=== PATIENT | male | born 1985 | race Caucasian/White ===

== ENCOUNTER 2017-08-21 22:40 | Emergency (ER) | payer OTHER ==
[~2017-08-21] VITALS: Ht 177.8 cm; Wt 90.0 kg
[2017-08-21 23:08] LABS: AUTOMATED NEUTROPHIL # 4.5 TH/MM3 (1.8-7.7); BASOPHIL % 0.6 % (0.0-2.0); EOSINOPHIL # 0.1 TH/MM3 (0-0.4); EOSINOPHIL % 1.5 % (0.0-4.0); HEMATOCRIT 42.9 % (39.0-51.0); HEMOGLOBIN 14.9 GM/DL (13.0-17.0); LYMPH % 32.8 % (9.0-44.0); LYMPHOCYTE # 2.5 TH/MM3 (1.0-4.8); MEAN CELL VOLUME 92.1 FL (80.0-100.0); MEAN CORPUSCULAR HEMOGLOBIN 32.1 PG (27.0-34.0); MEAN CORPUSCULAR HGB CONC 34.9 % (32.0-36.0); MONO % 5.2 % (0.0-8.0); MONOCYTE # 0.4 TH/MM3 (0-0.9); NEUT % 59.9 % (16.0-70.0); PLATELET COUNT 259 TH/MM3 (150-450); RED BLOOD COUNT 4.65 MIL/MM3 (4.50-5.90); RED CELL DISTRIBUTION WIDTH 12.8 % (11.6-17.2); WHITE BLOOD COUNT 7.6 TH/MM3 (4.0-11.0)
[2017-08-21 23:13] VITALS: BP 124/80; PULSE 107; RESP 18; TEMP 98.7; O2SAT 97
[2017-08-21 23:34] LABS: ALKALINE PHOSPHATASE 104 U/L (45-117); TOTAL BILIRUBIN ADULT 0.3 MG/DL (0.2-1.0); TOTAL PROTEIN 7.8 GM/DL (6.4-8.2)
[2017-08-21 23:43] LABS: ALBUMIN 4.5 GM/DL (3.4-5.0); ALT (GPT) 26 U/L (12-78); AST (GOT) 37 U/L (15-37); BICARBONATE 25.5 MEQ/L (21.0-32.0); BLOOD UREA NITROGEN 10 MG/DL (7-18); CALCIUM 8.3 MG/DL (8.5-10.1); CHLORIDE 109 MEQ/L (98-107); GLOMERULAR FILTRATION RATE 113 ML/MIN (>89); GLUCOSE,RANDOM 101 MG/DL (74-106); SODIUM (NA) 146 MEQ/L (136-145)
[2017-08-21 23:44] LABS: ACETAMINOPHEN LESS THAN 2.0 MCG/ML (10.0-30.0)
[2017-08-22 00:27] VITALS: RESP 18
--- NOTE | 2017-08-22 00:27 | PD ---
HPI Chief Complaint: Alcohol/Drug Intoxication Time Seen by Provider: 22:54 Travel History International Travel<30 days: No Contact w/Intl Traveler<30days: No Traveled to known affect area: No History of Present Illness HPI Patient is a 31-year-old male presenting to the emergency department under a [place] act for psychiatric evaluation. Patient allegedly made statements that he was going to shoot himself or jump off the balcony at the [place]. Patient has been sober for 47 days and fell off the wagon today. He states he drank a pint of [place]. He has a history of depression anxiety, he states that he is talked about or thought about suicide in the past but would not act on it due to his sikh beliefs. Patient has no complaints of pain. He denies any hallucinations. He has no physical complaints at this time. Symptom onset is unknown, symptoms are moderate in nature. Unknown exacerbating factors. PFSH Past Medical History Anxiety: Yes Depression: Yes Social History Alcohol Use: Yes (HEAVILY INTOXICATED) Tobacco Use: Yes (1PPD) Substance Use: Yes (COCAINE) Allergies-Medications (Allergen,Severity, Reaction): Coded Allergies: No Known Allergies (Unverified , 08/21/17) Reported Meds & Prescriptions Reported Meds & Active Scripts Active No Active Prescriptions or Reported Medications Review of Systems Except as stated in HPI: all other systems reviewed are Neg Psychiatric: Positive: Anxiety, Depression, Suicidal Ideations, Substance Abuse Physical Exam Narrative GENERAL: Well-developed, well-nourished, alert male. Presenting in no acute distress. SKIN: Warm and dry. Superficial sunburn to the anterior chest wall, shoulders and back. HEAD: Atraumatic. Normocephalic. EYES: Pupils equal and round. No scleral icterus. No injection or drainage. ENT: No nasal bleeding or discharge. Mucous membranes pink and moist. NECK: Trachea midline. No JVD. CARDIOVASCULAR: Regular rate and rhythm. RESPIRATORY: No accessory muscle use. Clear to auscultation. Breath sounds equal bilaterally. GASTROINTESTINAL: Abdomen soft, non-tender, nondistended. Hepatic and splenic margins not palpable. MUSCULOSKELETAL: Extremities without clubbing, cyanosis, or edema. No obvious deformities. NEUROLOGICAL: Awake and alert. No obvious cranial nerve deficits. Motor grossly within normal limits. Five out of 5 muscle strength in the arms and legs. Normal speech. PSYCHIATRIC: Appropriate mood and affect; insight and judgment normal. Data Data Last Documented VS Vital Signs Date Time Temp Pulse Resp B/P (MAP) Pulse Ox O2 Delivery O2 Flow Rate FiO2 08/21/17 23:13 98.7 107 18 124/80 (95) 97 Orders Orders Complete Blood Count With Diff (08/21/17 22:57) Comprehensive Metabolic Panel (08/21/17 22:57) Thyroid Stimulating Hormone (08/21/17 22:57) Psych Screen (08/21/17 22:57) Drug Screen, Random Urine (08/21/17 22:57) Alcohol (Ethanol) (08/21/17 22:57) Salicylates (Aspirin) (08/21/17 22:57) Tylenol (Acetaminophen) (08/21/17 22:57) Labs Laboratory Tests Test 08/21/17 22:58 08/21/17 23:08 White Blood Count 7.6 TH/MM3 Red Blood Count 4.65 MIL/MM3 Hemoglobin 14.9 GM/DL Hematocrit 42.9 % Mean Corpuscular Volume 92.1 FL Mean Corpuscular Hemoglobin 32.1 PG Mean Corpuscular Hemoglobin Concent 34.9 % Red Cell Distribution Width 12.8 % Platelet Count 259 TH/MM3 Mean Platelet Volume 8.0 FL Neutrophils (%) (Auto) 59.9 % Lymphocytes (%) (Auto) 32.8 % Monocytes (%) (Auto) 5.2 % Eosinophils (%) (Auto) 1.5 % Basophils (%) (Auto) 0.6 % Neutrophils # (Auto) 4.5 TH/MM3 Lymphocytes # (Auto) 2.5 TH/MM3 Monocytes # (Auto) 0.4 TH/MM3 Eosinophils # (Auto) 0.1 TH/MM3 Basophils # (Auto) 0.0 TH/MM3 CBC Comment DIFF FINAL Differential Comment Blood Urea Nitrogen 10 MG/DL Creatinine 0.80 MG/DL Random Glucose 101 MG/DL Total Protein 7.8 GM/DL Albumin 4.5 GM/DL Calcium Level 8.3 MG/DL Alkaline Phosphatase 104 U/L Aspartate Amino Transf (AST/SGOT) 37 U/L Alanine Aminotransferase (ALT/SGPT) 26 U/L Total Bilirubin 0.3 MG/DL Sodium Level 146 MEQ/L Potassium Level 4.0 MEQ/L Chloride Level 109 MEQ/L Carbon Dioxide Level 25.5 MEQ/L Anion Gap 12 MEQ/L Estimat Glomerular Filtration Rate 113 ML/MIN Thyroid Stimulating Hormone 3rd Gen 0.353 uIU/ML Salicylates Level 2.0 MG/DL Acetaminophen Level LESS THAN 2.0 MCG/ML Ethyl Alcohol Level 261 MG/DL Urine Opiates Screen NEG Urine Barbiturates Screen NEG Urine Amphetamines Screen NEG Urine Benzodiazepines Screen NEG Urine Cocaine Screen POS Urine Cannabinoids Screen NEG MDM Medical Decision Making Medical Screen Exam Complete: Yes Emergency Medical Condition: Yes Interpretation(s) Vital Signs Date Time Temp Pulse Resp B/P (MAP) Pulse Ox O2 Delivery O2 Flow Rate FiO2 08/21/17 23:13 98.7 107 18 124/80 (23) 97 Differential Diagnosis Substance abuse versus mood disorder versus metabolic abnormality versus suicidal ideation versus depression versus other Narrative Course Patient is well-appearing 31-year-old male presenting emergency department for psychiatric evaluation under [place] act. Patient is admittedly intoxicated, he is calm and cooperative. Mental health screening discussed with the patient. Psychiatric screen ordered. CBC with no acute findings, chemistry with no acute findings, TSH is 0.353. Urine drug screen is positive for cocaine, alcohol level is 261. Patient is medically cleared for psychiatric evaluation at this time. Diagnosis Primary Impression: Medical clearance for psychiatric admission Additional Impression: Polysubstance abuse Scripts No Active Prescriptions or Reported Meds Condition: Stable Jodee Forman August 22, 2017 00:27
[2017-08-22 06:16] VITALS: BP 117/59; PULSE 70; RESP 16; O2SAT 100
--- NOTE | 2017-08-22 09:48 | PD.PSY.CON ---
Provisional Diagnosis Admission Date Date of consultation 08/22/2017 [place] I. 1. Alcohol dependence with intoxication, intoxication now resolved 2. Cocaine abuse 3. Reported history of anxiety and depression, presently stable [place] II. Deferred History of Present Illness Service Psychiatry Consult Requested By Emergency department Reason for Consult [place] act Primary Care Physician Unknown HPI Mr. Mcgowan is a 31-year-old male with a reported history of alcohol dependence , depression and anxiety who presents under a [place] act by law enforcement alleging that the patient threatened to jump off of a balcony. Patient was intoxicated on presentation here with alcohol level of 261 and his urine toxicology was positive for cocaine. Reviewing the electronic medical record, I note this is patient's first visit to [facility]. Patient seen and examined. Chart reviewed. Case discussed with nursing staff. No reported behavioral disturbance or evidence of suicidality or homicidality while the patient has been under observation in the [facility]. Nurse reports that she has obtained collateral information from family that is reassuring. On my examination this morning, the patient is clinically sober. He has no recollection of the allegations in the [place] act. He tells me that he relapsed to alcohol on Monday and also has used some cocaine. He denies any suicidal or homicidal ideation, intent or plan now and contracts for safety. He says that he wants to live for his children. He reports that recently his mood has been fairly good, and I can elicit no depressive or hypomanic/manic symptoms. He denies any audiovisual hallucinations. I can elicit no paranoia, no thought insertion or withdrawal, no ideas of reference, no other delusional material. The remainder of the psychiatric ROS is negative. The patient is requesting discharge from the emergency room this morning. He has no physical complaints. Past psychiatric history: Patient reports previous diagnoses as noted above. He follows with a psychiatrist in [place] and is apparently participating in an intensive outpatient program for chemical dependency treatment. He is reportedly maintained on Wellbutrin and Prozac. He denies any history of psychiatric admissions. He denies any history of suicide attempts or violent behavior. Family history: The patient denies any family history of mental illness or suicide. Chemical dependency history: The patient reports that he enrolled in intensive outpatient program in June of this year. He relapsed to alcohol Monday. He also used powder cocaine because "it was just there." Denies any other substance use. Social history: Patient lives with his . He has 2 children. He works at [employer]. He has high school educated. He denies any history. He had a DUI 9 or 10 years ago but denies any legal issues otherwise. He denies any access to guns presently but does note that firearms are kept at his home in [place]. He denies ever having had a suicide plan involving a gun. He is a Confucianist. He denies any history of abuse or neglect. Review of Systems Except as stated in HPI: all other systems reviewed are Neg Past Family Social History Coded Allergies: No Known Allergies (Unverified , 08/21/17) Past Medical History Patient reports a history of GERD No Active Prescriptions or Reported Meds Patient reports that he takes Wellbutrin, Prozac and Prilosec Patient's Strengths (min. 2) Attending to basic needs. Verbally fluent. Physical Exam Physical examination was completed by the ED provider. On my examination today , the patient appears to be in no acute physical distress. No motor abnormalities noted. In particular no signs of intoxication or withdrawal noted. Laboratories and vital signs reviewed: Vital Signs Vital Signs Date Time Temp Pulse Resp B/P (MAP) Pulse Ox O2 Delivery O2 Flow Rate FiO2 08/22/17 06:16 70 16 117/59 (78) 100 Room Air 08/21/17 23:13 98.7 Lab Results Test 08/21/17 22:58 08/21/17 23:08 White Blood Count 7.6 TH/MM3 Red Blood Count 4.65 MIL/MM3 Hemoglobin 14.9 GM/DL Hematocrit 42.9 % Mean Corpuscular Volume 92.1 FL Mean Corpuscular Hemoglobin 32.1 PG Mean Corpuscular Hemoglobin Concent 34.9 % Red Cell Distribution Width 12.8 % Platelet Count 259 TH/MM3 Mean Platelet Volume 8.0 FL Neutrophils (%) (Auto) 59.9 % Lymphocytes (%) (Auto) 32.8 % Monocytes (%) (Auto) 5.2 % Eosinophils (%) (Auto) 1.5 % Basophils (%) (Auto) 0.6 % Neutrophils # (Auto) 4.5 TH/MM3 Lymphocytes # (Auto) 2.5 TH/MM3 Monocytes # (Auto) 0.4 TH/MM3 Eosinophils # (Auto) 0.1 TH/MM3 Basophils # (Auto) 0.0 TH/MM3 CBC Comment DIFF FINAL Differential Comment Blood Urea Nitrogen 10 MG/DL Creatinine 0.80 MG/DL Random Glucose 101 MG/DL Total Protein 7.8 GM/DL Albumin 4.5 GM/DL Calcium Level 8.3 MG/DL Alkaline Phosphatase 104 U/L Aspartate Amino Transf (AST/SGOT) 37 U/L Alanine Aminotransferase (ALT/SGPT) 26 U/L Total Bilirubin 0.3 MG/DL Sodium Level 146 MEQ/L Potassium Level 4.0 MEQ/L Chloride Level 109 MEQ/L Carbon Dioxide Level 25.5 MEQ/L Anion Gap 12 MEQ/L Estimat Glomerular Filtration Rate 113 ML/MIN Thyroid Stimulating Hormone 3rd Gen 0.353 uIU/ML Salicylates Level 2.0 MG/DL Acetaminophen Level LESS THAN 2.0 MCG/ML Ethyl Alcohol Level 261 MG/DL Urine Opiates Screen NEG Urine Barbiturates Screen NEG Urine Amphetamines Screen NEG Urine Benzodiazepines Screen NEG Urine Cocaine Screen POS Urine Cannabinoids Screen NEG Mental Status Examination Appearance: Appropriate Consciousness: Alert Orientation: x4 Motor Activity: Normal gait Speech: Unremarkable Language: Adequate Fund of Knowledge: Adequate Attention and Concentration: Adequate Memory: Unremarkable (Grossly intact on clinical exam) Mood: Appropriate Affect: Appropriate Thought Process & Associations: Intact, Logical, Goal directed, Linear Thought Content: Appropriate Hallucination Type: None Delusion Type: None Suicidal Ideation: No Suicidal Plan: No Suicidal Intention: No Homicidal Ideation: No Homicidal Plan: No Homicidal Intention: No Mental Status Exam Remarks Insight and judgment are perhaps fair Assessment & Plan Problem List: (1) Alcohol dependence with intoxication ICD Codes: F10.229 - Alcohol dependence with intoxication, unspecified (2) Cocaine abuse ICD Codes: F14.10 - Cocaine abuse, uncomplicated Assessment & Plan 31-year-old male with psychiatric history as detailed above who presents [place] act by law enforcement. On my examination today, the patient is clinically sober. He has no recollection of the allegations in the [place] act. He denies any suicidal or homicidal ideation and contracts for safety. I can detect no unstable mental illness as defined under the [place] act in this patient at this time. He does have substance use issues with recent relapse to alcohol. I have recommended that he reach out his outpatient treatment team to see if he needs to escalate his chemical dependency treatment. There is no evidence of self-care deficit. Nurse has obtained reassuring collateral from patient's family. Synthesizing this information and based on the available evidence, I lab aide that the patient does not meet the [place] act criteria. I have lifted the [place] act. In addition to following up with outpatient providers, I have recommended that the patient abstain from substances of abuse. I have also recommended that his firearm be secured, and I have instructed the nursing staff in particular to call the family back and to make sure that firearms and other potential means of self-harm are secured. I have counseled the patient regarding warning signs for need to return to the psychiatric emergency room as part of a general safety plan. Patient is otherwise psychiatrically clear for discharge from the ED. Thank you very much for this consultation. Ravi Vera MD August 22, 2017 09:48
--- NOTE | 2017-08-22 10:36 | PD ---
Data Data Last Documented VS Vital Signs Date Time Temp Pulse Resp B/P (MAP) Pulse Ox O2 Delivery O2 Flow Rate FiO2 08/22/17 06:16 70 16 117/59 (78) 100 Room Air 08/21/17 23:13 98.7 Orders Orders Complete Blood Count With Diff (08/21/17 22:57) Comprehensive Metabolic Panel (08/21/17 22:57) Thyroid Stimulating Hormone (08/21/17 22:57) Psych Screen (08/21/17 22:57) Drug Screen, Random Urine (08/21/17 22:57) Alcohol (Ethanol) (08/21/17 22:57) Salicylates (Aspirin) (08/21/17 22:57) Tylenol (Acetaminophen) (08/21/17 22:57) Diet Regular Basic (08/22/17 Breakfast) ^ Other Nursing Orders (08/22/17 09:48) Ed Discharge Order (08/22/17 10:35) Labs Laboratory Tests Test 08/21/17 22:58 08/21/17 23:08 White Blood Count 7.6 TH/MM3 Red Blood Count 4.65 MIL/MM3 Hemoglobin 14.9 GM/DL Hematocrit 42.9 % Mean Corpuscular Volume 92.1 FL Mean Corpuscular Hemoglobin 32.1 PG Mean Corpuscular Hemoglobin Concent 34.9 % Red Cell Distribution Width 12.8 % Platelet Count 259 TH/MM3 Mean Platelet Volume 8.0 FL Neutrophils (%) (Auto) 59.9 % Lymphocytes (%) (Auto) 32.8 % Monocytes (%) (Auto) 5.2 % Eosinophils (%) (Auto) 1.5 % Basophils (%) (Auto) 0.6 % Neutrophils # (Auto) 4.5 TH/MM3 Lymphocytes # (Auto) 2.5 TH/MM3 Monocytes # (Auto) 0.4 TH/MM3 Eosinophils # (Auto) 0.1 TH/MM3 Basophils # (Auto) 0.0 TH/MM3 CBC Comment DIFF FINAL Differential Comment Blood Urea Nitrogen 10 MG/DL Creatinine 0.80 MG/DL Random Glucose 101 MG/DL Total Protein 7.8 GM/DL Albumin 4.5 GM/DL Calcium Level 8.3 MG/DL Alkaline Phosphatase 104 U/L Aspartate Amino Transf (AST/SGOT) 37 U/L Alanine Aminotransferase (ALT/SGPT) 26 U/L Total Bilirubin 0.3 MG/DL Sodium Level 146 MEQ/L Potassium Level 4.0 MEQ/L Chloride Level 109 MEQ/L Carbon Dioxide Level 25.5 MEQ/L Anion Gap 12 MEQ/L Estimat Glomerular Filtration Rate 113 ML/MIN Thyroid Stimulating Hormone 3rd Gen 0.353 uIU/ML Salicylates Level 2.0 MG/DL Acetaminophen Level LESS THAN 2.0 MCG/ML Ethyl Alcohol Level 261 MG/DL Urine Opiates Screen NEG Urine Barbiturates Screen NEG Urine Amphetamines Screen NEG Urine Benzodiazepines Screen NEG Urine Cocaine Screen POS Urine Cannabinoids Screen NEG MDM Medical Record Reviewed: Yes Supervised Visit with LEON: No Narrative Course See previous providers notes. This patient was previously medically cleared. He has now cleared by psychiatry and the [place] act has been lifted. He has no medical issues that would warrant further hospitalization. He is stable for discharge. Diagnosis Primary Impression: Medical clearance for psychiatric admission Additional Impression: Polysubstance abuse Scripts No Active Prescriptions or Reported Meds Condition: Stable Ayush Hosuer August 22, 2017 10:36
== END 2017-08-22 15:00 | disposition home or self-care (01) ==
LOC: NEPJ 22:40
DX: F10.229 Alcohol dependence with intoxication, unspecified (principal); Y90.8 Blood alcohol level of 240 mg/100 ml or more; F14.10 Cocaine abuse, uncomplicated; L55.9 Sunburn, unspecified; F32.9 Major depressive disorder, single episode, unspecified; K21.9 Gastro-esophageal reflux disease without esophagitis; F41.9 Anxiety disorder, unspecified; F17.200 Nicotine dependence, unspecified, uncomplicated
CPT/HCPCS: 80053; 80307; 84443; 85025; 99283